=== PATIENT | male | born 1990 | race Caucasian/White ===

== ENCOUNTER 2018-08-31 12:02 | Emergency (ER) | payer SELFPAY ==
--- NOTE | 2018-08-31 13:56 | ULT ---
BILATERAL SCROTAL ULTRASOUND INCLUDING COLOR AND SPECTRAL DOPPLER IMAGING: History: 28-year-old male with history of testicular pain, left greater than right. FINDINGS: Right testes measures 4.3 x 2.0 x 3.1 cm. The left testes measures 4.3 x 2.1 x 2.6 cm. The epididimal regions are unremarkable. Minimally prominent extra scrotal veins on the left side, evidence for bor derline varicocele. No intratesticular mass or testicular torsion. Arterial inflow and venous outflow noted to be testes. IMPRESSION: Borderline prominent left extratesticular veins, evidence for borderline varicocele. No intratesticul ar mass or testicular torsion or other acute process. POS: [facility]
== END 2018-08-31 14:00 | disposition home or self-care (01) ==
LOC: ERS 12:02
DX: I86.1 Scrotal varices (principal); F41.9 Anxiety disorder, unspecified; F31.9 Bipolar disorder, unspecified; F17.210 Nicotine dependence, cigarettes, uncomplicated
CPT/HCPCS: 76870; 93976; 99406

== ENCOUNTER 2018-10-16 17:56 | Emergency (ER) | payer SELFPAY ==
[2018-10-16] MEDS ORDERED: Adacel (T-DAP) 0.5 ML SYRINGE ONE (18:29)
[2018-10-16] MEDS ORDERED: cefTRIAXone\\ROCEPHIN 1 GM VIAL ONE (18:31)
[2018-10-16] MEDS ORDERED: Lidocaine 1% PF 5 ML VIAL ONE (18:31)
== END 2018-10-16 18:50 | disposition home or self-care (01) ==
LOC: ERS 17:56
DX: S61.251A Open bite of left index finger without damage to nail, initial encounter (principal); L03.012 Cellulitis of left finger; F17.210 Nicotine dependence, cigarettes, uncomplicated; W50.3XXA Accidental bite by another person, initial encounter
CPT/HCPCS: 90471; 90715; 96372; J0696; J2001

== ENCOUNTER 2019-04-02 09:21 | Emergency (ER) | payer SELFPAY ==
[2019-04-02 10:07] LABS: Bilirubin Negative (Negative); Blood, Urine Negative (Negative); Clarity CLOUDY (Clear); Glucose, Urine (Dipstick) Negative (Negative); Leukocyte Negative (Negative); Nitrite Negative (Negative); Protein, Urine (Dipstick) 30 mg/dL (Neg-Trace); Specific Gravity, Urine 1.027 (1.002-1.036); Urobilinogen 0.2 mg/dL (0.2-1.0)
[2019-04-02 10:10] LABS: Bacteria/HPF None Seen HPF (None Seen); Squamous Epithelial 0-3 HPF (0-3)
[2019-04-02 10:23] LABS: ALT (SGPT) 21 U/L (8-55); AST (SGOT) 20 U/L (5-34); Albumin 4.1 g/dL (3.5-5.0); Alkaline Phosphatase 57 U/L (40-150); Anion Gap 12 mmol/L (10-20); BUN (Urea Nitrogen) 10 mg/dL (8.9-20.6); Bilirubin, Total 0.6 mg/dL (0.2-1.2); CK (CPK) 46 U/L (30-200); Calc. Creatinine Clearance 0 mL/min (70-130); Calcium 9.5 mg/dL (7.8-10.44); Carbon Dioxide 29 mmol/L (22-29); Chloride 100 mmol/L (98-107); Estimated GFR-MDRD Greater than 90; Globulin 2.8 g/dL (2.4-3.5); Glucose 90 mg/dL (70-105); Lipase 11 U/L (8-78); Potassium 3.9 mmol/L (3.5-5.1); Protein, Total 6.9 g/dL (6.0-8.3); Sodium 137 mmol/L (136-145)
[2019-04-02 10:23] LABS: Hyaline Casts/LPF 0-3 HYALINE CAST LPF (0-3 Hyaline); Transitional Epithelial 0-3 HPF (0-3)
[2019-04-02 10:38] LABS: Band 22 % (5-11); Hemoglobin 14.7 g/dL (14.0-18.0); Large Platelets SLIGHT; Lymphocytes 24 % (21-51); MDiff Complete? YES; Mean Corpuscular HGB CONC 34.3 g/dL (32.0-36.0); Mean Corpuscular Hemoglobin 32.2 pg (27.0-31.0); Mean Platelet Volume 7.3 fL (7.4-10.4); Monocytes 14 % (0-10); Neutrophil 28 % (42-75); Platelet Count 335 thou/uL (130-400); Platelet Morphology Comment Appears Adequate; RBC Distribution Width 10.9 % (11.5-14.5); Reactive Lymphocytes 12 % (0-10); Red Blood Cell (RBC) Count 4.57 mill/uL (4.70-6.10); White Blood Cell (WBC) Count 6.5 thou/uL (4.8-10.8)
== END 2019-04-02 11:17 | disposition home or self-care (01) ==
LOC: ERS 09:21
DX: E86.0 Dehydration (principal); B34.9 Viral infection, unspecified; F17.210 Nicotine dependence, cigarettes, uncomplicated; Z71.6 Tobacco abuse counseling
CPT/HCPCS: 80053; 81003; 81015; 82550; 83690; 85025; 87804; 96360; 99406